=== PATIENT | female | born 1985 | race Caucasian/White ===

== ENCOUNTER 2021-05-10 11:23 | Emergency (ER) | payer OTHER ==
[2021-05-10] MEDS ORDERED: CYCLOBENZAPRINE10 MG PO (13:13)
[2021-05-10] MEDS ORDERED: NAPROSYN500 MG PO (13:13)
== END 2021-05-10 14:15 | disposition home or self-care (01) ==
LOC: ER1 11:23
DX: M54.50 Low back pain, unspecified (principal)
CPT/HCPCS: 72131; 96372; 99283; J1100; J1885

== ENCOUNTER → 2021-07-10 | Outpatient (CLI) | payer OTHER ==
[~2021-07-10] MED LIST: CYCLOBENZAPRINE10 MG PO; NAPROSYN500 MG PO
== END ==
LOC: EMI 07-09 13:45
DX: M51.27 Other intervertebral disc displacement, lumbosacral region (principal); M48.07 Spinal stenosis, lumbosacral region
CPT/HCPCS: 72148

== ENCOUNTER 2021-12-19 10:03 | Emergency (ER) | payer OTHER ==
[2021-12-19 11:52] LABS: HEMOGLOBIN 14.3 gm/dl (12.3-15.3); RED BLOOD COUNT 4.56 M/UL (4.00-5.10); WHITE BLOOD COUNT 8.3 K/UL (4.5-11.0)
[2021-12-19 12:17] LABS: BUN/CREATININE RATIO 13 (0-10)
[2021-12-19] MEDS ORDERED: FLOMAX 0.4 MG0.4 MG PO (15:18)
== END 2021-12-19 16:06 | disposition home or self-care (01) ==
LOC: ER1 10:03
PROVIDERS: Physician Assistant
DX: N20.0 Calculus of kidney (principal); N83.202 Unspecified ovarian cyst, left side; K80.20 Calculus of gallbladder without cholecystitis without obstruction
CPT/HCPCS: 80053; 81001; 83690; 84703; 85025; 96361; 96374; 99284; J1885; Q9967